=== PATIENT | male | born 1970 ===

== ENCOUNTER 2017-03-23 18:06 | Emergency (ER) | payer MEDICAID, OTHER ==
[2017-03-23 18:26] VITALS: BP 114/80; PULSE 80; RESP 18; TEMP 97.8; O2SAT 99
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
--- NOTE | 2017-03-23 20:44 | ED PDOC ---
- ECG O2 Sat by Pulse Oximetry: 99 - Other Rad left knee xray X-Ray: Viewed By Me X-Ray Interpretation: no acute findings - Progress ED Course And Treament: Case endorsed to typewriter operator automatic from Christian CANELA pending xray Patient educated on findings, placed in left knee immobilizer. Advised RICE, NSAIDs. Follow up ortho Return to ED for worsening/concerning symptoms. Disposition - Clinical Impression Clinical Impression: Leg pain - POA Present On Arrival: None - Disposition Referrals: Popeye Thompson MD [Staff Provider] - Disposition: Routine/Home Disposition Time: 20:45 Condition: STABLE Instructions: Knee Pain (ED), RICE Therapy (ED) Forms: [employer] (Wallisian)
--- NOTE | 2017-03-24 08:54 | RAD ---
PROCEDURE: Left Knee Radiographs. HISTORY: Pain. COMPARISON: 07/16/2012. FINDINGS: BONES: Bone alignment and mineralization are normal. There is no acute displaced fracture or bone destruction. JOINTS: Normal. No osteoarthritis. JOINT EFFUSION: There is a small suprapatellar joint effusion. OTHER FINDINGS: None. IMPRESSION: No acute fracture or dislocation. Small suprapatellar joint effusion.
== END 2017-03-23 20:57 | disposition home or self-care (01) ==
LOC: H.ER 18:06
DX: S80.02XA Contusion of left knee, initial encounter (principal); W22.8XXA Striking against or struck by other objects, initial encounter; Y92.89 Other specified places as the place of occurrence of the external cause